=== PATIENT | male | born 1935 | race Caucasian/White ===

== ENCOUNTER 2017-01-18 16:14 | Emergency (ER) | payer MEDICARE, BC ==
[2017-01-18 16:42] VITALS: BP 130/71
--- NOTE | 2017-01-18 18:30 | EDM.PDOC ---
ED HPI GENERAL MEDICAL PROBLEM - General Chief Complaint: Laceration Stated Complaint: FELL AND HIT HEAD ON A TREE Time Seen by Provider: 01/18/17 18:08 Source of Information: Reports: Patient, Family History Limitations: Reports: No Limitations - History of Present Illness INITIAL COMMENTS - FREE TEXT/NARRATIVE: 81 year old male, who while raking leaves, lost his balance and fell down a slope striking his head against a tree. He did not have LOC, here with lacerations over right eye and behind left ear. Not on blood thinners. Denies headache, dizziness. NO other bony injuries Onset: Sudden Onset Date: 01/18/17 Onset Time: 14:15 Left Ear Pain Score (Numeric/FACES): 8 - Related Data Allergies Allergy/AdvReac Type Severity Reaction Status Date / Time venom-honey bee Allergy Swelling Verified 01/18/17 16:51 [bee venom (honey bee)] Home Meds: Home Meds Lovastatin 40 mg PO BEDTIME 12/03/13 [History] Past Medical History HEENT History: Reports: Cataract, Hard of Hearing Gastrointestinal History: Reports: Cholelithiasis Musculoskeletal History: Reports: Back Pain, Chronic - Past Surgical History HEENT Surgical History: Reports: Cataract Surgery GI Surgical History: Reports: Appendectomy, Cholecystectomy, Hernia, Inguinal Social & Family History - Tobacco Use Smoking Status *Q: Never Smoker Years of Tobacco use: 5 Used Tobacco, but Quit: Yes Month Tobacco Last Used: 40 years ago Second Hand Smoke Exposure: No - Caffeine Use Caffeine Use: Reports: Coffee - Alcohol Use Days Per Week of Alcohol Use: 0 - Recreational Drug Use Recreational Drug Use: No ED ROS GENERAL - Review of Systems Review Of Systems: See Below Constitutional: Reports: No Symptoms HEENT: Reports: Ear Pain. Denies: Eye Pain Respiratory: Reports: No Symptoms Cardiovascular: Reports: No Symptoms ED EXAM, SKIN/RASH Exam: See Below Exam Limited By: No Limitations General Appearance: Alert, WD/WN, No Apparent Distress Ears: Normal Canal, Hearing Grossly Normal, Normal TMs, Other (open laceration on back of left ear, stellate with cartilage exposed, some foreign material, no sign of skin loss) Nose: Normal Inspection, Normal Mucosa, No Blood Throat/Mouth: Normal Inspection, Normal Lips, Normal Teeth, Normal Gums, Normal Oropharynx, Normal Voice, No Airway Compromise Head: No: Facial Swelling Neck: Normal Inspection, Supple, Non-Tender, Full Range of Motion Respiratory/Chest: No Respiratory Distress Neurological: Alert, Oriented, CN II-XII Intact, Normal Cognition, Normal Gait, No Motor/Sensory Deficits Psychiatric: Normal Affect, Normal Mood Skin: Wound/Incision (2 cm laceration above right eye) ED SKIN PROCEDURES - Laceration/Wound Repair Right Face Lac/Wound length In cm: 2 Appearance: Linear, Clean Skin Prep: Saline Closed with: Wound Adhesive Left Ear Lac/Wound length In cm: 2 Appearance: Stellate, Irregular, Moderately Contaminated Anesthetic Type: Local Local Anesthesia - Lidocaine (Xylocaine): 1% Plain Local Anesthetic Volume: Other (10cc) Skin Prep: Chlorhexidine (Hibiciens), Saline Saline Irrigation (cc's): 250 Exploration/Debridement/Repair: Wound Explored, Foreign Material Removed, Multiple Flaps Aligned Closed with: Sutures Suture Size: other (6-0) Suture Type: Nylon, Interrupted Drain Placement: No Sterile Dressing Applied: Nurse (vaseline gauze in front and behind pinna, with gauze over and mild pressure dressing applied) Tetanus Status Addressed: Yes (will be given booster) Course - Vital Signs Last Recorded V/S: Last Vital Signs Temp 37.2 C 01/18/17 16:37 Pulse 60 01/18/17 16:37 Resp 16 01/18/17 16:37 BP 130/71 01/18/17 16:37 Pulse Ox 92 L 01/18/17 16:37 - Orders/Labs/Meds Orders: Active Orders 24 hr Category Date Time Status Lidocaine 1% [Xylocaine 1%] Med 01/18/17 19:13 Once 20 ml INJECT ONETIME ONE Departure - Departure Time of Disposition: 20:07 Disposition: Home, Self-Care 01 Clinical Impression: Simple laceration of face, Laceration of ear - Discharge Information Instructions: Stitches, Grace, or Adhesive Wound Closure, [id number] Referrals: Mickey Maxwell MD [Primary Care Provider] - Forms: ED Department Discharge Additional Instructions: will need to seen by ENT early next week for ED follow-up per their recommendations - My Orders Last 24 Hours: My Active Orders 01/18/17 19:13 Lidocaine 1% [Xylocaine 1%] 20 ml INJECT ONETIME ONE - Assessment/Plan Last 24 Hours: My Active Orders 01/18/17 19:13 Lidocaine 1% [Xylocaine 1%] 20 ml INJECT ONETIME ONE Assessment:: 81 year old male with a fall outdoors with sustained 2 lace, one minor one above right eye which was glued with skin adhesive after cleansing. The other was more major behind left ear with a stellate laceration with the cartilage of posterior pinna exposed. ENT was consulted by phone and recommended thorough cleansing, and then closing with approximation and dressing with vaseline gauze and pressure behind and in front of ear. They will see him in clinic this coming week for follow-up. Patient was given a tetanus booster after the wound was closed and will be sent home with an rx for Keflex for next week. Wound care discussed
[2017-01-18] MEDS ORDERED: Lidocaine 1% 20 ML MDV INJECT ONE (19:13)
[2017-01-18] MEDS ORDERED: Diphtheria/Tetanus Toxoids,Adult (Td) 0.5 ML SDV IM ONE (20:10)
== END 2017-01-18 20:35 | disposition home or self-care (01) ==
LOC: JP.ED 16:14
DX: S05.31XA Ocular laceration without prolapse or loss of intraocular tissue, right eye, initial encounter (principal); S01.312A Laceration without foreign body of left ear, initial encounter; Z23 Encounter for immunization; W01.10XA Fall on same level from slipping, tripping and stumbling with subsequent striking against unspecified object, initial encounter
CPT/HCPCS: 12013; 90471; 90714; 99283-25

== ENCOUNTER 2022-07-19 15:05 | Emergency (ER) | payer MEDICARE ==
[2022-07-19] MEDS ORDERED: Sodium Chloride 0.9% 1,000 ML IV SCH (18:30)
[2022-07-19 18:33] VITALS: PULSE 91
[2022-07-19 19:46] VITALS: BP 123/58
== END 2022-07-19 21:07 ==
LOC: JP.ED 15:05
DX: S72.011A Unspecified intracapsular fracture of right femur, initial encounter for closed fracture (principal); S01.01XA Laceration without foreign body of scalp, initial encounter; U07.1 COVID-19; N17.9 Acute kidney failure, unspecified; D69.6 Thrombocytopenia, unspecified; D53.9 Nutritional anemia, unspecified; Z91.030 Bee allergy status; Z20.822 Contact with and (suspected) exposure to COVID-19; W19.XXXA Unspecified fall, initial encounter; Y92.009 Unspecified place in unspecified non-institutional (private) residence as the place of occurrence of the external cause
CPT/HCPCS: 36415; 51702; 70450; 73700; 80048; 85025; 85610; 85730; 96360; 96361; 99285; J7030; U0002

== ENCOUNTER 2022-09-15 06:53 | Emergency (ER) | payer MEDICARE ==
[2022-09-15 07:05] VITALS: BP 124/61; PULSE 64
[2022-09-15 07:48] LABS: BASOPHILS ABSOLUTE AUTO 0.04 K/uL (0.00-0.10); BASOPHILS PERCENT AUTO 0.7 % (0.1-1.3); EOSINOPHILS ABSOLUTE AUTO 0.23 K/uL (0.00-0.40); EOSINOPHILS PERCENT AUTO 4.3 % (0.0-5.4); HEMATOCRIT 37.3 % (38.4-49.7); HEMOGLOBIN 13.1 g/dL (12.9-16.9); IMMATURE GRAN PERCENT AUTO 0.4 % (0.0-0.7); LYMPHOCYTES ABSOLUTE AUTO 1.47 K/uL (0.8-3.3); LYMPHOCYTES PERCENT AUTO 27.2 % (11.4-47.7); MEAN CORPUSCULAR HEMOGLOBIN 34.1 pg (31.6-35.5); MEAN CORPUSCULAR HGB CONC 35.1 g/dL (31.6-35.5); MEAN CORPUSCULAR VOLUME 97.1 fL (81.4-99.0); MONOCYTES ABSOLUTE AUTO 0.57 K/uL (0.20-0.90); MONOCYTES PERCENT AUTO 10.5 % (3.3-12.6); NEUTROPHILS ABSOLUTE AUTO 3.08 K/uL (1.0-7.6); NEUTROPHILS PERCENT AUTO 56.9 % (40.0-78.1); PLATELET COUNT,PLT 199 K/uL (130-375); RED BLOOD CELL COUNT 3.84 M/uL (4.14-5.76); WHITE BLOOD CELL COUNT,WBC 5.4 K/uL (3.2-11.0)
[2022-09-15 07:49] LABS: IMMATURE GRAN ABSOLUTE AUTO 0.02 K/uL (0.00-0.23)
== END 2022-09-15 09:19 ==
LOC: JP.ED 06:53
DX: S01.81XA Laceration without foreign body of other part of head, initial encounter (principal); S70.01XA Contusion of right hip, initial encounter; R41.3 Other amnesia; Z91.030 Bee allergy status; W18.30XA Fall on same level, unspecified, initial encounter
CPT/HCPCS: 12011; 36415; 70450; 70450-26; 73700-26-RT; 73700-RT; 85025; 99284